=== PATIENT | male | born 1970 | race Caucasian/White ===

== ENCOUNTER 2016-10-08 15:12 | Emergency (ER) | payer OTHER ==
[2016-10-08] MEDS ORDERED: Acetaminophen/oxyCODONE 325-10 MG Tab PO ONE (15:51)
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
[2016-10-08] MEDS ORDERED: Diphtheria,Pertussis(Acell),Tetanus Vaccine 0.5 ML Syringe IM ONE (16:47)
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
== END 2016-10-08 18:36 | disposition home or self-care (01) ==
LOC: MW.ED 15:12
DX: T54.3X1A Toxic effect of corrosive alkalis and alkali-like substances, accidental (unintentional), initial encounter (principal); T20.62XA Corrosion of second degree of lip(s), initial encounter; T20.611A Corrosion of second degree of right ear [any part, except ear drum], initial encounter; T20.67XA Corrosion of second degree of neck, initial encounter; T28.5XXA Corrosion of mouth and pharynx, initial encounter; T28 Burn and corrosion of other internal organs; Z23 Encounter for immunization; Y92.69 Other specified industrial and construction area as the place of occurrence of the external cause; Y99.0 Civilian activity done for income or pay
CPT/HCPCS: 90471; 90715; 99283; A9270; 99291